=== PATIENT | female | born 1980 | race Caucasian/White ===

== ENCOUNTER 2020-10-19 15:57 | Emergency (ER) | payer BC | END 2020-10-19 17:17 | disposition home or self-care (01) | LOC: JVIRT 15:57 | DX: Z03.818 Encounter for observation for suspected exposure to other biological agents ruled out (principal) | CPT/HCPCS: C9803; G2012-GT; U0003 ==

== ENCOUNTER 2020-10-26 14:12 | Emergency (ER) | payer BC | END 2020-10-26 15:04 | disposition home or self-care (01) | LOC: JVIRT 14:12 | DX: U07.1 COVID-19 (principal) | CPT/HCPCS: C9803; G2012-GT; U0003 ==